=== PATIENT | male | born 1985 | race American Indian/Alaskan Native ===

== ENCOUNTER 2016-08-05 23:49 | Emergency (ER) | payer SELFPAY ==
[2016-08-06 00:08] VITALS: BP 140/98
[2016-08-06] MEDS ORDERED: ZOFRAN ODT PO ONE (00:09)
[2016-08-06] MEDS ORDERED: BENADRYL IV ONE (00:10)
[2016-08-06] MEDS ORDERED: PEPCID IV ONE (00:11)
== END 2016-08-06 04:30 | disposition left against medical advice (07) ==
LOC: ED 23:49
DX: R11.10 Vomiting, unspecified (principal); Z53.21 Procedure and treatment not carried out due to patient leaving prior to being seen by health care provider
CPT/HCPCS: J1200; J2930; Q0162

== ENCOUNTER 2017-12-19 19:31 | Emergency (ER) | payer SELFPAY ==
[2017-12-19 20:11] VITALS: BP 139/78
[2017-12-19] MEDS ORDERED: ULTRAM PO ONE (22:08)
[2017-12-19] MEDS ORDERED: CLEOCIN PO ONE (22:08)
--- NOTE | 2017-12-19 22:13 | Emergency Department Report ---
ED ENT HPI - General Chief complaint: Dental/Oral Stated complaint: TOOTHACHE Time Seen by Provider: 12/19/17 22:02 Source: patient Mode of arrival: Ambulatory Limitations: Physical Limitation - History of Present Illness Initial comments: Patient is a 32-year-old male who presents with dental pain dental caries acute on chronic for the last 2 years states started last week call to make a dental appointment but can't see a dentist next week complains of 6/10 left upper dental pain subjective swelling aching exacerbated by hot and cold stimuli patient has not attempted [id number] NSAIDs for pain patient is tolerating by mouth intake without distress complaint: tooth pain Onset/Timin -: week(s), unknown (chronic for last 2 yrs ) Location: tooth # (14) Severity: moderate Severity scale (0 -10): 7 Quality: aching Consistency: intermittent Improves with: none Worsens with: eating, other (hot cold stimuli ) Context- Dental: poor dental care Associated Symptoms: toothache - Related Data Previous Rx's Medication Instructions Recorded Last Taken Type Butalb/Acetamin/Caff 50-325-40 1 tab PO Q8HR PRN #20 tablet 01/20/16 Unknown Rx [Fioricet] Ibuprofen [Motrin] 800 mg PO Q8HR PRN #30 tablet 01/20/16 Unknown Rx methOCARBAMOL [Robaxin TAB] 500 mg PO BID #15 tab 01/20/16 Unknown Rx Chlorhexidine Mouthwash [Peridex] 15 ml MM BID #1 bottle 12/19/17 Unknown Rx Clindamycin [Clindamycin CAP] 300 mg PO Q6H 10 Days #30 capsule 12/19/17 Unknown Rx traMADol [Ultram] 50 mg PO Q6HR PRN #12 tablet 12/19/17 Unknown Rx Allergies Allergy/AdvReac Type Severity Reaction Status Date / Time pickles Allergy Vomiting Uncoded 08/06/16 00:09 ED Dental HPI - General Chief complaint: Dental/Oral Stated complaint: TOOTHACHE Time Seen by Provider: 12/19/17 22:02 Source: patient Mode of arrival: Ambulatory Limitations: Physical Limitation - Related Data Previous Rx's Medication Instructions Recorded Last Taken Type Butalb/Acetamin/Caff 50-325-40 1 tab PO Q8HR PRN #20 tablet 01/20/16 Unknown Rx [Fioricet] Ibuprofen [Motrin] 800 mg PO Q8HR PRN #30 tablet 01/20/16 Unknown Rx methOCARBAMOL [Robaxin TAB] 500 mg PO BID #15 tab 01/20/16 Unknown Rx Chlorhexidine Mouthwash [Peridex] 15 ml MM BID #1 bottle 12/19/17 Unknown Rx Clindamycin [Clindamycin CAP] 300 mg PO Q6H 10 Days #30 capsule 12/19/17 Unknown Rx traMADol [Ultram] 50 mg PO Q6HR PRN #12 tablet 12/19/17 Unknown Rx Allergies Allergy/AdvReac Type Severity Reaction Status Date / Time pickles Allergy Vomiting Uncoded 08/06/16 00:09 ED Review of Systems ROS: Stated complaint: TOOTHACHE Other details as noted in HPI Constitutional: denies: chills, fever Eyes: denies: eye pain, eye discharge, vision change ENT: dental pain Respiratory: denies: cough, shortness of breath, wheezing Cardiovascular: denies: chest pain, palpitations Endocrine: no symptoms reported Gastrointestinal: denies: abdominal pain, nausea, diarrhea Genitourinary: denies: urgency, dysuria Musculoskeletal: denies: back pain, joint swelling, arthralgia Skin: denies: rash, lesions Neurological: denies: headache, weakness, paresthesias Psychiatric: denies: anxiety, depression Hematological/Lymphatic: denies: easy bleeding, easy bruising ED Past Medical Hx - Past Medical History Previous Medical History?: No - Surgical History Past Surgical History?: Yes Additional Surgical History: Left leg SX - Social History Smoking Status: Former Smoker Substance Use Type: Marijuana - Medications Home Medications: Home Medications Medication Instructions Recorded Confirmed Last Taken Type Butalb/Acetamin/Caff 50-325-40 1 tab PO Q8HR PRN #20 tablet 01/20/16 Unknown Rx [Fioricet] Ibuprofen [Motrin] 800 mg PO Q8HR PRN #30 tablet 01/20/16 Unknown Rx methOCARBAMOL [Robaxin TAB] 500 mg PO BID #15 tab 01/20/16 Unknown Rx Chlorhexidine Mouthwash [Peridex] 15 ml MM BID #1 bottle 12/19/17 Unknown Rx Clindamycin [Clindamycin CAP] 300 mg PO Q6H 10 Days #30 capsule 12/19/17 Unknown Rx traMADol [Ultram] 50 mg PO Q6HR PRN #12 tablet 12/19/17 Unknown Rx ED Physical Exam - General Limitations: Physical Limitation General appearance: alert, in no apparent distress - Head Head exam: Present: atraumatic, normocephalic - Eye Eye exam: Present: normal appearance, PERRL, EOMI Pupils: Present: normal accommodation - ENT ENT exam: Present: mucous membranes moist - Expanded ENT Exam Expanded Ear exam: Present: normal external inspection Mouth exam: Absent: trismus Teeth exam: Present: dental caries, dental tenderness # (14) Throat exam: Positive: normal inspection. Negative: tonsillar erythema, tonsillar exudate, R peritonsillar mass, L peritonsillar mass - Neck Neck exam: Present: normal inspection, full ROM. Absent: lymphadenopathy, thyromegaly - Respiratory Respiratory exam: Present: normal lung sounds bilaterally. Absent: respiratory distress, chest wall tenderness - Cardiovascular Cardiovascular Exam: Present: regular rate, normal rhythm. Absent: systolic murmur, diastolic murmur, rubs, gallop - GI/Abdominal GI/Abdominal exam: Present: soft, normal bowel sounds - Rectal Rectal exam: Present: deferred - Extremities Exam Extremities exam: Present: normal inspection - Back Exam Back exam: Present: normal inspection - Neurological Exam Neurological exam: Present: alert, oriented X3 - Psychiatric Psychiatric exam: Present: normal affect, normal mood - Skin Skin exam: Present: warm, dry, intact, normal color. Absent: rash ED Course Vital Signs 12/19/17 20:06 Temperature 98.9 F Pulse Rate 69 Respiratory 18 Rate Blood Pressure 139/78 O2 Sat by Pulse 100 Oximetry ED Medical Decision Making - Medical Decision Making Infected dental caries plan clindamycin Ultram Peridex followed with [facility] in 2-3 days patient verbalizes agreement Corona Fidencio patient was DC'd home in stable condition at this time Critical care attestation.: If time is entered above; I have spent that time in minutes in the direct care of this critically ill patient, excluding procedure time. ED Disposition Clinical Impression: Infected dental carries Disposition: DC-01 TO HOME OR SELFCARE Is pt being admited?: No Does the pt Need Aspirin: No Condition: Good Instructions: Dental Caries (ED) Prescriptions: Chlorhexidine Mouthwash [Peridex] 15 ml MM BID #1 bottle Clindamycin [Clindamycin CAP] 300 mg PO Q6H 10 Days #30 capsule traMADol [Ultram] 50 mg PO Q6HR PRN #12 tablet PRN Reason: Pain Referrals: PRIMARY CARE,MD [Primary Care Provider] - 3-5 Days Forms: Work/School Release Form(ED) Time of Disposition: 22:17
== END 2017-12-19 22:24 | disposition home or self-care (01) ==
LOC: ED 19:31
DX: K04.7 Periapical abscess without sinus (principal); F12.90 Cannabis use, unspecified, uncomplicated; Z87.891 Personal history of nicotine dependence; Z91.018 Allergy to other foods
CPT/HCPCS: 99282